=== PATIENT | female | born 1985 | race Caucasian/White ===

== ENCOUNTER 2017-12-29 04:06 | Inpatient (IN) | payer MEDICAID ==
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
[2017-12-29] MEDS ORDERED: Sodium Chloride 0.9% 1,000 ML IV ONE (04:48)
[2017-12-29 05:16] LABS: URINE MICROSCOPIC INDICATED? YES; URINE SOURCE CLEAN C
[2017-12-29 05:27] LABS: HEMATOCRIT 36.9 % (41.0-60); MEAN CELL VOLUME 78.6 fl (81-100); MEAN CORPUSCULAR HEMOGLOBIN 25.6 pg (27.0-31.0); MEAN CORPUSCULAR HGB CONC 32.6 pg (28.0-36.0); MEAN PLATELET VOLUME 9.5 fl; PLATELET COUNT 341 Th/cmm (150-400); RED BLOOD COUNT 4.69 Mil/cmm (3.80-5.10); RED CELL DISTRIBUTION WIDTH 14.1 % (11.5-20.0); URINE BILIRUBIN NEGATIVE (NEGATIVE); URINE BLOOD NEGATIVE (NEGATIVE); URINE GLUCOSE (UA) >=1000 mg/dL (NEGATIVE); URINE KETONE NEGATIVE (NEGATIVE); URINE LEUKOCYTE ESTERASE NEGATIVE (NEGATIVE); URINE NITRATE NEGATIVE (NEGATIVE); URINE PH 6.5 (4.6 - 8.0); URINE PROTEIN NEGATIVE (NEGATIVE); URINE UROBILINOGEN 0.2 E.U./dL (0.2 - 1.0); WHITE BLOOD COUNT 9.4 Th/cmm (4.8-10.8)
[2017-12-29 05:33] LABS: INR 0.89 (0.5-1.4); PROTHROMBIN TIME (TEST) 9.1 SECONDS (9.5-11.5)
[2017-12-29 05:36] LABS: ALB/GLOB RATIO 1.1 (1.0-1.8); ALBUMIN 4.1 gm/dL (3.7-5.3); ALKALINE PHOSPHATASE 129 U/L (34-104); AMYLASE SERUM 52 U/L (29-103); ANION GAP 11.9 (7.0-16.0); BILIRUBIN,TOTAL 0.5 mg/dL (0.3-1.0); BUN - UREA NITROGEN 22 mg/dL (7-25); CALCIUM SERUM 9.4 mg/dL (8.6-10.3); CARBON DIOXIDE 23.2 mEq/L (21.0-31.0); CHLORIDE 97 mEq/L (98-107); CHOLESTEROL 247 mg/dL (<200); CREATININE - SERUM 0.8 mg/dL (0.6-1.2); CREATININE KINASE 336 U/L (30-223); GFR AFRICAN-AMERICAN > 60.0 ml/min (>90); GFR NON AFRICAN-AMERICAN > 60.0 ml/min; HDL -HIGH DENSITY LIPOPROTEIN 122 mg/dL (23-92); LIPASE 52 U/L (11-82); POTASSIUM SERUM 4.1 mEq/L (3.5-5.1); SGOT 33 U/L (13-39); SGPT/ALT 27 U/L (7-52); SODIUM SERUM 128 mEq/L (136-145); TOTAL PROTEIN,SERUM 7.8 gm/dL (6.0-8.3); TRIGLYCERIDES 84 mg/dL (<150)
[2017-12-29 05:44] LABS: GLUCOSE 634 mg/dL (70-105)
[2017-12-29] MEDS ORDERED: INSULIN HUMAN REGULAR 100 UNITS/ML UNIT SUBQ ONE (05:50)
[2017-12-29] MEDS ORDERED: INSULIN HUMAN REGULAR 100 UNITS/ML UNIT ONE (05:52)
[2017-12-29 05:53] LABS: URINE BACTERIA MODERATE /hpf (NONE SEEN); URINE CLARITY HAZY (CLEAR); URINE COLOR YELLOW; URINE EPITHELIAL CELLS MANY /lpf (FEW); URINE RBC 0-2 /hpf (0-5)
[2017-12-29 05:57] LABS: LYMPHOCYTE 14 % (20-50); NEUTROPHILS 86 % (40-80); PLATELET ESTIMATE ADEQUATE (NORMAL); TOTAL CELLS COUNTED 100
[2017-12-29] MEDS ORDERED: cefTRIAXone 1 GM in Sodium Chloride 0.9% 50 ML IV ONE (06:38)
[2017-12-29] MEDS ORDERED: Sodium Chloride 0.9% 1,000 ML IV SCH (06:45)
[2017-12-29] MEDS ORDERED: INSULIN HUMAN REGULAR 100 UNITS/ML UNIT SUBQ SCH ×2 (07:30→12:00)
[2017-12-29] MEDS ORDERED: Dextrose 50% 50 mL Abboject IVP ONE ×2 (09:24)
--- NOTE | 2017-12-29 11:07 | History and Physical ---
History of Present Illness - HPI Chief Complaint: Abdominal pain, HPI: Patient left AMA before I interview her Vital Signs: Last Vital Signs Temp 98 F 12/29/17 07:29 Pulse 84 12/29/17 07:29 Resp 16 12/29/17 07:29 BP 127/95 12/29/17 07:29 Pulse Ox 100 12/29/17 07:29 Past Medical History Cardiovascular: Report: No Pertinent Hx Pulmonary: Report: No Pertinent Hx ENVIRONMENTAL STUDIES DEPARTMENT CHAIR: Report: No Pertinent Hx GI: Report: No Pertinent Hx Psych: Report: Anxiety, Addictions Musculoskeletal: Report: No Pertinent Hx Rheumatologic: Report: No pertinent Hx Infectious Disease: Report: No Pertinent Hx Renal/: Report: No Pertinent Hx Endocrine: Report: No Pertinent Hx Dermatology: Report: No Pertinent Hx Family Medical History - Family Member Mother Ethnicity: Non- Social History Smoke: 2 packs per day Alcohol: Heavy Drugs: Crystal Meth, Marijuana Lives: Homeless Domestic Violence: Negative - Medications Home Medications: Home Medication Medication Instructions Recorded Type Unobtainable [Unobtainable] 12/29/17 History - Allergies Allergies/Adverse Reactions: Allergies Allergy/AdvReac Type Severity Reaction Status Date / Time No Known Allergies Allergy Verified 12/29/17 04:19 Review of Systems - Review of Systems Review of Systems: Patient left AMA before I interview her Constitutional: Report: No Significant Eyes: Report: No Significant ENT: Report: No Significant Respiratory: Report: No Significant Cardiovascular: Report: No Significant Gastrointestinal: Report: Other (Abdominal pain) Genitourinary: Report: No Significant Musculoskeletal: Report: No Significant Skin: Report: No Significant Neurological: Report: No Significant Physical Exam - Physical Exam HEENT: Report: Ears Nose Throat within normal limits, Pharnyx within normal limits Neck: Report: Within normal limits Cardiovascular Systems: Report: Regular, Rate and Rhythm, no murmurs noted Respiratory: Report: Clear to Auscultation of lung ruther[place], Breath Sounds are within normal limits Abdomen: Report: Non-tender to palpation, Bowel Sounds are within normal limits Back: Report: Inspection of back is within normal limits. Extremities: Report: Non-tender to palpation., Patient had full range of motion , No pedal edema was noted on inspection Skin: Report: Color of skin is within normal limits, Warm, Dry, No Rashes noted of the skin Neuro/Psych: Report: A+Ox3, CN II-XII intact, Mood affect is within normal limits, No sensory deficit - Lab Results All Lab Results last 24 hours: Laboratory Results - last 24 hr 12/29/17 08:30 Serum Ketones NEGATIVE - Assessment Assessment: Patient left AMA before I see her. - Plan Plan: patient left AMA
== END 2017-12-29 10:00 | disposition left against medical advice (07) | DRG 420 ==
LOC: ER 04:06 → MSI 06:45
PROVIDERS: ADMIT General Practice; ATTEND General Practice
DX: E11.00 Type 2 diabetes mellitus with hyperosmolarity without nonketotic hyperglycemic-hyperosmolar coma (NKHHC) (principal); K31.84 Gastroparesis; E11.43 Type 2 diabetes mellitus with diabetic autonomic (poly)neuropathy; E11.65 Type 2 diabetes mellitus with hyperglycemia; K52.9 Noninfective gastroenteritis and colitis, unspecified; Z53.21 Procedure and treatment not carried out due to patient leaving prior to being seen by health care provider; E86.0 Dehydration; E87.1 Hypo-osmolality and hyponatremia; F17.200 Nicotine dependence, unspecified, uncomplicated; Z82.49 Family history of ischemic heart disease and other diseases of the circulatory system; Z83.3 Family history of diabetes mellitus
CPT/HCPCS: 36415-UA; 80053-TC; 80061-TC; 81001-TC; 81025-TC; 82010-TC; 82150-TC; 82550-TC; 82553; 82948-90; 83690-TC; 83880-TC; 84484-TC; 85007-TC; 85025-TC; 85027-TC; 85610-TC; 87086-90; 93005; 94760; 96374; J0696; J1815; J7030; J7799; Z7610